=== PATIENT | male | born 1970 | race African-American/Black ===

== ENCOUNTER 2017-08-02 14:43 | Emergency (ER) | payer OTHER ==
[2017-08-02] MEDS ORDERED: NS(*) 0.9% 1000 ML BAG 1,000 ML IV ONE (15:06)
[2017-08-02] MEDS ORDERED: ASPIRIN 81 MG CHEW PO ONE (15:10)
[2017-08-02] MEDS ORDERED: ALBUTEROL 2.5 MG/0.5ML ER ONLY NEB ONE (15:10)
[2017-08-02 15:51] LABS: PLATELET COUNT, AUTOMATED 167 K/uL (150-450)
[2017-08-02 15:56] LABS: INR 1.07
--- NOTE | 2017-08-02 16:25 | EKG ---
FACILITY: [facility] - [place] PATIENT NAME: ADONIS SMITH : [id number] MR: [id number] V: [id number] EXAM DATE: ORDERING PHYSICIAN: LETI ANNE TECHNOLOGIST: GINNY Wyatt Reason : SOB Blood Pressure : / mmHG Vent. Rate : 070 BPM Atrial Rate : 070 BPM P-R Int : 186 ms QRS Dur : 088 ms QT Int : 380 ms P-R-T Axes : 048 061 051 degrees QTc Int : 410 ms Normal sinus rhythm Nonspecific ST abnormality Abnormal ECG No previous ECGs available Confirmed by EARL HOYOS ([id number]) on 08/03/2017 2:48:59 PM Referred By: OMID Confirmed By:EARL HOYOS
[2017-08-02 17:02] VITALS: BP 95/81
--- NOTE | 2017-08-02 17:33 | RADIOLOGY IMAGING REPORT ---
FACILITY: [facility] [place] PATIENT NAME: Dwaine Sanchez : 1970 MR: [id number] V: [id number] EXAM DATE: ORDERING PHYSICIAN: LEIT ANNE TECHNOLOGIST: Location: [facility] [place] Patient: Dwaine Sanchez : 1970 Visit/Account:[id number] Date of Sevice: 08/02/2017 Examination: CHEST PA AND LAT Comparison: None. History: Respiratory distress. Findings: Cardiac and hilar contour size is normal. No consolidation, nodule, or peribronchial inflam mation. No pneumothorax, edema, or effusion. Osseous structures are intact. IMPRESSION: Negative chest. Report Dictated By: Stevie Nash MD at 08/02/2017 5:27 PM Report E-Signed By: Stevie Nash MD at 08/02/2017 5:29 PM WSN:[id number]
--- NOTE | 2017-08-02 18:01 | ER Report ---
History and Physical Time Seen By MD: 15:00 Hx. 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 HE STARTED HAVING SHORTNESS OF BREATH AROUND [place]. HE STOPPED AT THE [facility] IN [place] A CALLED EMS HPI/ROS CHIEF COMPLAINT: Shortness breath, intermittent chest tightness HISTORY OF PRESENT ILLNESS: Patient is a 46-year-old male here with complaints of shortness breath, intermittent chest tightness as he was pulling into [place]. 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 He had been evaluated and ruled out for cardiac etiology however he was previously placed on metoprolol for PVCs and was noted to have symptomatic bradycardia at an outside facility stopped on this medication. He was also medicating with aspirin which gave him an uneasy side effect of a jittery sensation. Patient denies prior history of cardiac disease, heart attack, clotting disorder. Denies prior history of smoking or lung disease. REVIEW OF SYSTEMS: Constitutional: No fever, no chills. Eyes: No discharge. ENT: No sore throat. Cardiovascular: No chest pain, no palpitations. Respiratory: No cough, ++ mild shortness of breath. Gastrointestinal: No abdominal pain, no vomiting. Genitourinary: No hematuria. Musculoskeletal: No back pain. Skin: No rashes. Neurological: No headache. Allergies: Coded Allergies: No Known Drug Allergies (Unverified , 08/02/17) Home Meds Active Scripts Albuterol Sulfate (VENTOLIN HFA) 18 Gm Inh, 2 PUFF INH Q4-6H for 7 Days, #1 INH Prov:LETI ANNE DO 08/02/17 Hx Substance Use Disorder: No Hx Alcohol Use: No Constitutional Vital Sign - Last 24 Hours 08/02/17 08/02/17 08/02/17 08/02/17 14:43 14:45 14:50 15:00 Temp 98.1 Pulse ??? 73 Resp 24 B/P (MAP) 142/84 (103) 142/84 143/99 (114) Pulse Ox 99 O2 Delivery Nasal Cannula O2 Flow Rate 2.0 08/02/17 08/02/17 08/02/17 08/02/17 15:13 15:20 15:20 15:27 Pulse 71 67 73 Resp 21 16 16 Pulse Ox 98 100 O2 Delivery Nasal Cannula O2 Flow Rate 2.0 08/02/17 08/02/17 08/02/17 08/02/17 15:34 15:43 16:00 16:13 Pulse 78 73 Resp 17 25 B/P (MAP) 133/91 (105) 151/106 (121) Pulse Ox 98 97 08/02/17 08/02/17 08/02/17 08/02/17 16:30 16:35 17:02 17:05 Pulse 77 67 Resp 10 19 B/P (MAP) 143/85 (104) 95/81 (86) Pulse Ox 98 97 08/02/17 08/02/17 17:35 18:05 Pulse 71 78 Pulse Ox 89 95 Physical Exam General Appearance: The patient is alert, has no immediate need for airway protection and no signs of toxicity. NAD Eyes: Pupils equal and round no pallor or injection. ENT, Mouth: Mucous membranes are moist. Respiratory: There are no retractions, lungs are clear to auscultation. Cardiovascular: Regular rate and rhythm. [ ] Gastrointestinal: Abdomen is soft and non tender, no masses, bowel sounds normal. Neurological: No focal deficits Skin: Warm and dry, no rashes. Musculoskeletal: Neck is supple non tender. Extremities are nontender, nonswollen and have full range of motion. DIFFERENTIAL DIAGNOSIS: After history and physical exam differential diagnosis was considered for shortness of breath including but not limited to pulmonary infectious process, COPD, asthma, pulmonary embolus and congestive heart failure. Medical Decision Making Data Points Result Diagram: 08/02/17 1537 08/02/17 1537 Laboratory Hematology Test 08/02/17 15:37 08/02/17 17:23 Red Blood Count 5.71 M/uL (4.00-5.60) Mean Corpuscular Volume 78.0 fL (80.0-96.0) Mean Corpuscular Hemoglobin 25.2 pg (26.0-33.0) Mean Corpuscular Hemoglobin Concent 32.3 g/dL (32.0-36.0) Red Cell Distribution Width 13.7 % (11.5-14.5) Mean Platelet Volume 9.4 fL (7.2-11.1) Neutrophils (%) (Auto) 49.9 % (39.4-72.5) Lymphocytes (%) (Auto) 40.9 % (17.6-49.6) Monocytes (%) (Auto) 7.7 % (4.1-12.4) Eosinophils (%) (Auto) 0.9 % (0.4-6.7) Basophils (%) (Auto) 0.6 % (0.3-1.4) Nucleated RBC Relative Count (auto) 0.1 /100WBC Neutrophils # (Auto) 1.7 K/uL (2.0-7.4) Lymphocytes # (Auto) 1.4 K/uL (1.3-3.6) Monocytes # (Auto) 0.3 K/uL (0.3-1.0) Eosinophils # (Auto) 0.0 K/uL (0.0-0.5) Basophils # (Auto) 0.0 K/uL (0.0-0.1) Nucleated RBC Absolute Count (auto) 0.00 K/uL Prothrombin Time 14.0 seconds (12.0-14.4) Prothromb Time International Ratio 1.07 Activated Partial Thromboplast Time 31 seconds (23-35) D-Dimer Quantitative (PE/DVT) 0.32 ug/ml (0-0.50) Sodium Level 140 mmol/L (137-145) Potassium Level 4.4 mmol/L (3.5-5.0) Chloride Level 99 mmol/L (98-107) Carbon Dioxide Level 30 mmol/L (22-30) Blood Urea Nitrogen 14 mg/dl (9-21) Creatinine 0.90 mg/dl (0.66-1.25) Glomerular Filtration Rate Calc > 60.0 Random Glucose 94 mg/dl (75-110) Calcium Level 9.3 mg/dl (8.4-10.2) Total Bilirubin 0.8 mg/dl (0.2-1.3) Aspartate Amino Transf (AST/SGOT) 27 U/L (0-35) Alanine Aminotransferase (ALT/SGPT) 28 U/L (0-56) Alkaline Phosphatase 68 U/L (0-126) B-Type Natriuretic Peptide 17 pg/ml (0-100) Total Protein 7.6 g/dl (6.3-8.2) Albumin 3.9 g/dl (3.5-5.0) Troponin I < 0.012 ng/ml Chemistry Test 08/02/17 15:37 08/02/17 17:23 White Blood Count 3.5 k/uL (4.5-11.0) Red Blood Count 5.71 M/uL (4.00-5.60) Hemoglobin 14.4 g/dL (14.0-18.0) Hematocrit 44.5 % (42.0-52.0) Mean Corpuscular Volume 78.0 fL (80.0-96.0) Mean Corpuscular Hemoglobin 25.2 pg (26.0-33.0) Mean Corpuscular Hemoglobin Concent 32.3 g/dL (32.0-36.0) Red Cell Distribution Width 13.7 % (11.5-14.5) Platelet Count 167 K/uL (150-450) Mean Platelet Volume 9.4 fL (7.2-11.1) Neutrophils (%) (Auto) 49.9 % (39.4-72.5) Lymphocytes (%) (Auto) 40.9 % (17.6-49.6) Monocytes (%) (Auto) 7.7 % (4.1-12.4) Eosinophils (%) (Auto) 0.9 % (0.4-6.7) Basophils (%) (Auto) 0.6 % (0.3-1.4) Nucleated RBC Relative Count (auto) 0.1 /100WBC Neutrophils # (Auto) 1.7 K/uL (2.0-7.4) Lymphocytes # (Auto) 1.4 K/uL (1.3-3.6) Monocytes # (Auto) 0.3 K/uL (0.3-1.0) Eosinophils # (Auto) 0.0 K/uL (0.0-0.5) Basophils # (Auto) 0.0 K/uL (0.0-0.1) Nucleated RBC Absolute Count (auto) 0.00 K/uL Prothrombin Time 14.0 seconds (12.0-14.4) Prothromb Time International Ratio 1.07 Activated Partial Thromboplast Time 31 seconds (23-35) D-Dimer Quantitative (PE/DVT) 0.32 ug/ml (0-0.50) Glomerular Filtration Rate Calc > 60.0 Calcium Level 9.3 mg/dl (8.4-10.2) Total Bilirubin 0.8 mg/dl (0.2-1.3) Aspartate Amino Transf (AST/SGOT) 27 U/L (0-35) Alanine Aminotransferase (ALT/SGPT) 28 U/L (0-56) Alkaline Phosphatase 68 U/L (0-126) B-Type Natriuretic Peptide 17 pg/ml (0-100) Total Protein 7.6 g/dl (6.3-8.2) Albumin 3.9 g/dl (3.5-5.0) Troponin I < 0.012 ng/ml Coagulation Test 08/02/17 15:37 Prothrombin Time 14.0 seconds Prothromb Time International Ratio 1.07 Activated Partial Thromboplast Time 31 seconds D-Dimer Quantitative (PE/DVT) 0.32 ug/ml ED Course/Re-evaluation ED Course 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 He has notably been worked up for cardiac etiologies recently in the past and also has been placed on metoprolol and stopped on metoprolol due to symptomatic bradycardia. Of note, the patient had an adverse reaction to aspirin, reporting a jittery sensation after receiving a dose here today. Patient denied prior history of pulmonary embolisms, deep vein thrombosis, clotting disorders, cardiac disease. Due to concern for cardiac etiology to set cardiac enzymes rule out test was ordered and was negative. D- dimer was negative, making a clot and unlikely etiology for symptoms. Chest x- ray showed no acute cardiopulmonary disease. Patient was given nebulizer treatment with moderate relief of symptoms and he was discharged with an inhaler HFA. Patient agreed to return promptly with worsening symptoms. Decision to Disposition Date: Aug 02, 2017 Decision to Disposition Time: 18:00 Depart Departure Latest Vital Signs Vital Signs Date Time Temp Pulse Resp B/P (MAP) Pulse Ox O2 Delivery O2 Flow Rate FiO2 08/02/17 18:05 78 95 08/02/17 17:05 19 08/02/17 17:02 95/81 (86) 08/02/17 15:20 Nasal Cannula 2.0 08/02/17 14:45 98.1 Impression: Primary Impression: Dyspnea Condition: Improved Disposition: HOME OR SELF-CARE New Scripts Albuterol Sulfate (VENTOLIN HFA) 18 Gm Inh 2 PUFF INH Q4-6H for 7 Days, #1 INH Prov: ANNE,LETI S DO 08/02/17 Departure Forms: Medications Reconciliation, Patient Portal Information, ER Transition Record Patient Instructions: Dyspnea (ED), Mountain Sickness (ED) Additional Instructions: You may take 2 puffs every 6 hours as needed for shortness of breath. Please return promptly if you develop any worsening shortness of breath, chest pain, fevers, chills, nausea, vomiting. LETI ANNE DO Aug 02, 2017 18:01
[2017-08-02] MEDS ORDERED: ALB18R INH (18:06)
[2017-08-02] MEDS ORDERED: ALBUTEROL SULFATE 90 MCG/ACT 8.5 GM HNH INH PRN (18:10)
== END 2017-08-06 11:55 | disposition home or self-care (01) ==
LOC: ER 14:48
DX: R06.02 Shortness of breath (principal)
CPT/HCPCS: 71046; 83880; 84484; 85025; 85379; 85610; 85730; 93005; 94640; 99284; J7611; 82040; 82247; 82310; 82374; 82435; 82565; 82947; 84075; 84132; 84155; 84295; 84450; 84460; 84520

== ENCOUNTER → 2017-08-02 | Outpatient (CLI) | payer OTHER ==
[~2017-08-02] MED LIST: ALB18R INH
== END ==
LOC: AMB 14:32
PROVIDERS: ATTEND Nurse Practitioner
DX: R06.00 Dyspnea, unspecified (principal); I10 Essential (primary) hypertension
CPT/HCPCS: A0425; A0427